=== PATIENT | female | born 1955 | race Caucasian/White ===

== ENCOUNTER → 2018-10-09 | Outpatient (CLI) | payer BC ==
[~2018-10-09] MED LIST: COMBIVENT INH14.7 GM IH; Oxygen; PAXIL40 MG PO; RT ADVAIR 228 DISKUS IH
== END ==
LOC: COL.VAS 08:00
DX: I10 Essential (primary) hypertension (principal); K59.01 Slow transit constipation; I70.1 Atherosclerosis of renal artery; N13.2 Hydronephrosis with renal and ureteral calculous obstruction

== ENCOUNTER 2018-11-13 13:59 | Day surgery (SDC) | payer BC ==
[2004-11-25 16:17] VITALS: BP 132/66
[~2018-11-13] VITALS: Ht 154.9 cm; Wt 90.5 kg
[2018-11-13] VITALS (7 sets, daily range): BP systolic 132–156; BP diastolic 69–89; PULSE 75–85; TEMP 98.1–98.3
[2018-11-13] MEDS ORDERED: MOTRIN 600600 MG/TAB PO (14:53)
[2018-11-13] MEDS ORDERED: WELLBUTRIN SR150 M1 PO (14:54)
[2018-11-13] MEDS ORDERED: BREO IH (14:54)
[2018-11-13] MEDS ORDERED: TYLENOL PM EXTR1 TA1 PO (14:55)
[2018-11-13] MEDS ORDERED: NORVASC2.5 MG PO (14:55)
--- NOTE | 2018-11-13 18:14 | NUR ---
Pt arrived to room 304 at this time. She is A/O x3. Her breathing is even and unlabored on 2.5L O2 via NC. Pt denies SOB. Current pain 5/10 to L back, PRN pain medications administered. Pt tolerating water without N/V, pudding provided. VSS. Pt up to restroom to urinate for second time since arriving. Will continue to monitor.
--- NOTE | 2018-11-13 19:15 | NUR ---
Patient resting in bed with family at bedside. Still reporting pain unrelieved by 1 tab of NORCO. Patient can have 1-2 every 4 hours. Second tab given and an ice pack. Still requiring 1 L of O2, will try to wean off this hour. Ambulatory. Tolerating liquids.
--- NOTE | 2018-11-13 20:04 | NUR ---
Patient now off of oxygen. Sp02 90-94% on room air. States pain is improving steadily, now a dull ache.
--- NOTE | 2018-11-13 21:15 | NUR ---
IV discontinued, paperwork signed, dressed. Accompanied to car by hospital staff. Ambulatory.
== END 2018-11-13 21:15 | disposition home or self-care (01) ==
LOC: SDCO 13:59 → PEDS 18:18 → SDCO 21:15
DX: N20.0 Calculus of kidney (principal); E55.9 Vitamin D deficiency, unspecified; F41.9 Anxiety disorder, unspecified; J44.9 Chronic obstructive pulmonary disease, unspecified; I10 Essential (primary) hypertension; G25.81 Restless legs syndrome; Z98.51 Tubal ligation status; F32.9 Major depressive disorder, single episode, unspecified; Z86.73 Personal history of transient ischemic attack (TIA), and cerebral infarction without residual deficits; Z79.899 Other long term (current) drug therapy; F17.210 Nicotine dependence, cigarettes, uncomplicated; Z80.51 Family history of malignant neoplasm of kidney; Z80.3 Family history of malignant neoplasm of breast
CPT/HCPCS: OP; C1769; C1894; C2617; J0690; J1100; J2405; J2704; J3010; J7120; Q9967

== ENCOUNTER → 2019-02-13 | Outpatient (CLI) | payer BC ==
[~2019-02-13] MED LIST changes: +BREO IH; +MOTRIN 600600 MG/TAB PO; +NORVASC2.5 MG PO; +TYLENOL PM EXTR1 TA1 PO; +WELLBUTRIN SR150 M1 PO
== END ==
LOC: COL.PUL 08:00
DX: J44.9 Chronic obstructive pulmonary disease, unspecified (principal); G47.33 Obstructive sleep apnea (adult) (pediatric); F17.210 Nicotine dependence, cigarettes, uncomplicated

== ENCOUNTER → 2024-04-23 | Outpatient (CLI) | payer MEDICARE ==
[~2024-04-23] MED LIST changes: +ALBUTEROL0.83 MG/ML IH; +OXYGEN NASAL.CANN; +PREDNISONE10 MG PO; +ZITHROMAX Z PA250 MG PO
== END ==
LOC: COL.RAD 10:09
DX: Z12.2 Encounter for screening for malignant neoplasm of respiratory organs (principal); R91.1 Solitary pulmonary nodule; Z98.891 History of uterine scar from previous surgery